=== PATIENT | female | born 1965 ===

== ENCOUNTER 2018-04-10 07:17 | Observation (INO) | payer MEDICAID, OTHER ==
[2018-04-10 07:18] VITALS: BMI 21.9
[2018-04-10] MEDS ORDERED: Albuterol-Ipratrop 3 mg / 0.5 (3 ml) UD IH STA ×3 (08:06→08:43)
--- NOTE | 2018-04-10 08:26 | ED PDOC ---
Arrival/HPI - General Historian: Patient - History of Present Illness Narrative History of Present Illness (Text): 04/10/18 08:26 Patient is a 52-year-old F with PMH of Heroin Abuse, COPD, and Asthma who presents with chest pain x2 days. Patient localizes the chest pain to her st ernum, and describes the pain as sharp, constant, and non-radiating. Patient quantifies the pain as 10/10 at its worst. Patient associates the pain with diaphoresis, productive cough with white sputum, and shortness of breath. Patient otherwise denies numbness/tingling in her upper and/or lower extremities, weakness, fatigue, fever, chills, blurred vision, diarrhea, nausea, and/or vomiting. Of note, Patient was recently seen at [facility], was discharged this Sunday, where she says she was diagnosed with bronchitis, and was prescribed oral prednisone. Patient says she started her Prednisone today and took 20mg PO. Time/Duration: < week Symptom Onset: Sudden Symptom Course: Unchanged Quality: Stabbing Severity Level: 10 Activities at Onset: Rest <Alize Law - Last Filed: 04/10/18 09:39> <Richardson Galvan - Last Filed: 04/10/18 10:27> - General Time Seen by Provider: 04/10/18 07:25 Past Medical History - Provider Review Nursing Documentation Reviewed: Yes - Infectious Disease Hx of Infectious Diseases: None - Cardiac Hx Hypertension: No - Pulmonary Hx Asthma: Yes Hx Bronchitis: Yes Hx Chronic Obstructive Pulmonary Disease (COPD): Yes Hx Pneumonia: Yes - Neurological Hx Seizures: No - HEENT Hx HEENT Disorder: No - Renal Hx Renal Disorder: Yes Hx Kidney Stones: Yes (RIGHT) - Endocrine/Metabolic Hx Endocrine Disorders: No - Hematological/Oncological Hx Blood Disorders: No - Integumentary Hx Dermatological Disorder: No - Musculoskeletal/Rheumatological Hx Musculoskeletal Disorders: Yes - Gastrointestinal Hx Gastritis: (Patient denies gatritis) - Genitourinary/Gynecological Hx Sexually Transmitted Diseases: No - Psychiatric Hx Anxiety: Yes Hx Depression: Yes Hx Substance Use: Yes - Surgical History Other/Comment: Hx Kidney stone removal lithotripsy - Anesthesia Hx Anesthesia: Yes Hx Anesthesia Reactions: No Hx Malignant Hyperthermia: No - Suicidal Assessment Feels Threatened In Home Enviroment: No <Alize Law - Last Filed: 04/10/18 09:39> Family/Social History - Physician Review Nursing Documentation Reviewed: Yes Family/Social History: Unknown Family HX Smoking Status: Heavy Smoker > 10 Cigarettes Daily Hx Alcohol Use: No Hx Substance Use: Yes Substance used: HEROIN <Alize Law - Last Filed: 04/10/18 09:39> Allergies/Home Meds <Alize Law - Last Filed: 04/10/18 09:39> <Richardson Galvan - Last Filed: 04/10/18 10:27> Allergies/Adverse Reactions: Allergies No Known Allergies Allergy (Verified 04/09/18 10:13) Review of Systems - Review of Systems Constitutional: absent: Fatigue Eyes: absent: Vision Changes, Eye Pain ENT: Normal Respiratory: SOB, Cough, Sputum (white) Cardiovascular: Chest Pain. absent: Palpitations, Edema, Calf Pain, Syncope Gastrointestinal: Normal Genitourinary Female: Normal Musculoskeletal: Normal Skin: Normal Neurological: Normal Endocrine: Normal Hemo/Lymphatic: Normal Psychiatric: Normal <Alize Law - Last Filed: 04/10/18 09:39> Physical Exam Vital Signs Temp Pulse Resp BP Pulse Ox 04/10/18 07:18 98.4 F 94 H 22 141/92 H 93 L Temperature: Afebrile Blood Pressure: Normal Pulse: Regular Respiratory Rate: Normal Appearance: Positive for: Non-Toxic, Uncomfortable Pain Distress: Moderate Mental Status: Positive for: Alert and Oriented X 3 - Systems Exam Head: Present: Atraumatic, Normocephalic Pupils: Present: PERRL Extroacular Muscles: Present: EOMI Conjunctiva: Present: Normal Ears: Present: Normal Mouth: Present: Moist Mucous Membranes Neck: Present: Normal Range of Motion. No: Bruit Respiratory/Chest: Present: Wheezes, Tender to Palpation (chest). No: Clear to Auscultation, Accessory Muscle Use, Decreased Breath Sounds Cardiovascular: Present: Regular Rate and Rhythm, Normal S1, S2. No: Murmurs Abdomen: Present: Normal Bowel Sounds. No: Tenderness, Distention, Peritoneal Signs Upper Extremity: Present: Normal Inspection. No: Cyanosis Lower Extremity: Present: Normal Inspection. No: Edema Neurological: Present: GCS=15, CN II-XII Intact, Speech Normal Skin: Present: Warm, Dry, Normal Color. No: Rashes <Alize Law - Last Filed: 04/10/18 09:39> Vital Signs Temp Pulse Resp BP Pulse Ox 04/10/18 10:08 98.6 F 22 138/85 92 L 04/10/18 07:18 98.4 F 94 H 22 141/92 H 93 L <Lj Galvanjoann Hurst - Last Filed: 04/10/18 10:27> Medical Decision Making ED Course and Treatment: 04/10/18 08:34 IMPRESSION Patient is a 52-year-old F with PMH of Heroin Abuse, COPD, and Asthma who presents with chest pain x2 days. ASSESSMENT Asthma exacerbation Bronchitis PLAN Imaging / Labs: - EKG: NSR, read by me - CBC - CMP - CXR - Troponin x1 Medications Administered - Solumedrol 125mg IVP - Duonebs x3 - Toradol 30 IVP 04/10/18 08:38 04/10/18 09:40 Patient is s/p duonebs x3 and continues to have wheezing and feel some discomfort in her chest. Patient admitted under the hospitalist team. - RAD Interpretation Radiology Orders: 04/10/18 08:13 CHEST PORTABLE [RAD] Stat - Medication Orders Current Medication Orders: Discontinued Medications Albuterol/Ipratropium (Duoneb 3 Mg/0.5 Mg (3 Ml) Ud) 3 ml IH STAT STA Stop: 04/10/18 08:07 Albuterol/Ipratropium (Duoneb 3 Mg/0.5 Mg (3 Ml) Ud) 3 ml IH STAT STA Stop: 04/10/18 08:16 Ketorolac Tromethamine (Toradol) 30 mg IVP STAT STA Stop: 04/10/18 08:07 Methylprednisolone (Solu-Medrol) 125 mg IVP STAT STA Stop: 04/10/18 08:07 <Alize Law - Last Filed: 04/10/18 09:39> ED Course and Treatment: 04/10/18 9:40 Patient is a 52 yo female with chest pain x shortness of breathe similar to her asthma. Lungs: wheezing, restractions, + rhonchi b/l Chest Wall: Tenderness to mid chest wall Impression is Asthma Exacerbation, Costrocondritis After several treatments in the ED patient improved but still having symptoms. She is still wheezing. Case was discussed with Dr. Guerra who admits for Dr. Pablo Alan. - Lab Interpretations Lab Results: pCO2 45 mm/Hg (35-45) 04/10/18 09:43 pO2 58.0 mm/Hg (80-100) L 04/10/18 09:43 HCO3 31.3 mmol/L (21-28) H 04/10/18 09:43 ABG pH 7.45 (7.35-7.45) 04/10/18 09:43 ABG Total CO2 32.7 mmol.L (22-28) H 04/10/18 09:43 ABG O2 Saturation 95.6 % (95-98) 04/10/18 09:43 ABG O2 Content 14.1 ML/dl (15-23) L 04/10/18 09:43 ABG Base Excess 6.5 mmol/L (-2.0-3.0) H 04/10/18 09:43 ABG Hemoglobin 11.0 g/dL (11.7-17.4) L 04/10/18 09:43 ABG Carboxyhemoglobin 4.2 % (0.5-1.5) H 04/10/18 09:43 POC ABG HHb (Measured) 4.2 % (0-5) 04/10/18 09:43 ABG Methemoglobin 0.8 % (0.0-3.0) 04/10/18 09:43 ABG O2 Capacity 14.7 mL/dl (16-24) L 04/10/18 09:43 Hgb O2 Saturation 90.8 % (95.0-98.0) L 04/10/18 09:43 FiO2 21.0 % 04/10/18 09:43 Troponin I < 0.01 ng/mL 04/10/18 08:30 Total Bilirubin 0.2 mg/dL (0.2-1.3) 04/10/18 08:30 AST 32 U/L (14-36) 04/10/18 08:30 ALT 42 U/L (7-56) 04/10/18 08:30 Alkaline Phosphatase 76 U/L (38-126) 04/10/18 08:30 Total Protein 6.2 g/dL (5.8-8.3) 04/10/18 08:30 Albumin 3.7 g/dL (3.0-4.8) 04/10/18 08:30 Globulin 2.6 gm/dL 04/10/18 08:30 Albumin/Globulin Ratio 1.4 (1.1-1.8) 04/10/18 08:30 - RAD Interpretation Radiology Orders: 04/10/18 08:13 CHEST PORTABLE [RAD] Stat - Medication Orders Current Medication Orders: Discontinued Medications Albuterol/Ipratropium (Duoneb 3 Mg/0.5 Mg (3 Ml) Ud) 3 ml IH STAT STA Stop: 04/10/18 08:07 Last Admin: 04/10/18 08:08 Dose: 3 ml Albuterol/Ipratropium (Duoneb 3 Mg/0.5 Mg (3 Ml) Ud) 3 ml IH STAT STA Stop: 04/10/18 08:16 Last Admin: 04/10/18 09:36 Dose: 3 ml Albuterol/Ipratropium (Duoneb 3 Mg/0.5 Mg (3 Ml) Ud) 3 ml IH STAT STA Stop: 04/10/18 08:44 Last Admin: 04/10/18 08:45 Dose: 3 ml Ketorolac Tromethamine (Toradol) 30 mg IVP STAT STA Stop: 04/10/18 08:07 Last Admin: 04/10/18 09:10 Dose: 30 mg MAR Pain Assessment Document 04/10/18 09:10 SRE (Rec: 04/10/18 09:37 [id number] Pain Reassessment Is this a pain reassessment? Yes Sleep Is patient sleeping during reassessment? No Presence of Pain Presence of Pain Yes Location Pain Location Body Site Generalized Description Description Intermittent IVP Administration Document 04/10/18 09:10 SRE (Rec: 04/10/18 09:37 [facility]RE [id number]) Charges for Administration # of IVP Administrations 1 Methylprednisolone (Solu-Medrol) 125 mg IVP STAT STA Stop: 04/10/18 08:07 Last Admin: 04/10/18 08:10 Dose: 125 mg IVP Administration Document 04/10/18 08:10 SRE (Rec: 04/10/18 09:36 [id number] Charges for Administration # of IVP Administrations 1 <Richardson Galvan - Last Filed: 04/10/18 10:27> Disposition/Present on Arrival - Present on Arrival Any Indicators Present on Arrival: No History of DVT/PE: No History of Uncontrolled Diabetes: No Urinary Catheter: No History Surgical Site Infection Following: None - Disposition Have Diagnosis and Disposition been Completed?: Yes Disposition Time: 09:39 Patient Plan: Admission <Alize Law - Last Filed: 04/10/18 09:39> - Disposition Have Diagnosis and Disposition been Completed?: Yes <Richardson Galvan - Last Filed: 04/10/18 10:27> - Disposition Diagnosis: Exacerbation of asthma Disposition: HOSPITALIZED Condition: GUARDED
[2018-04-10 08:49] LABS: BASO # 0.01 K/mm3 (0.0-2.0); BASO % 0.1 % (0.0-3.0); EOS # 0.1 (0.0-0.7); EOS % 0.3 % (1.5-5.0); GRAN # 13.42 (1.4-6.5); GRAN % 88.2 % (50.0-68.0); HEMOGLOBIN 10.7 g/dL (12.0-16.0); LYMPH # 0.9 (1.2-3.4); MEAN CELL VOLUME 90.1 fl (80.0-105.0); MEAN CORPUSCULAR HEMOGLOBIN 27.8 pg (25.0-35.0); MEAN CORPUSCULAR HGB CONC 30.8 g/dl (31.0-37.0); MEAN PLATELET VOLUME 9.4 fl (7.0-11.0); MONO # 0.8 (0.1-0.6); MONO % 5.4 % (1.0-6.0); RBC 3.85 10^6/uL (3.5-6.1); RED CELL DISTRIBUTION WIDTH 15.7 % (11.5-14.5); WHITE BLOOD COUNT 15.2 10^3/uL (4.5-11.0)
[2018-04-10 09:08] LABS: TROPONIN I < 0.01 ng/mL
[2018-04-10 09:26] LABS: ALB/GLOB RATIO 1.4 (1.1-1.8); ALBUMIN 3.7 g/dL (3.0-4.8); ALT/SGPT 42 U/L (7-56); AST/SGOT 32 U/L (14-36); BLOOD UREA NITROGEN 22 mg/dL (7-21); CALCIUM 8.3 mg/dL (8.4-10.5); GFR NON-AFRICAN AMERICAN > 60
--- NOTE | 2018-04-10 09:48 | RAD ---
Date of service: 04/10/2018 HISTORY: chest pain COMPARISON: 03/29/2018 FINDINGS: LUNGS: The prior right basal equivocal infiltrate is less conspicuous on this exam. The right infrahilar bronchovascular markings do appear more prominent than typically seen. Some minimal prior and/or clearing right infrahilar peribronchial ir inflammatory changes including a patchy infiltrate here is still a consideration based on the even earlier appearance of a 10/09/2015 study. Additional underlying pathology here not excluded. In the mid right lung zone an interval vague low-density nodular opacity is perceived not apparent on prior studies. An equivocal less pronounced opacity in left mid lung zone (versus summation of bronchovascular markings in the posterior left rib) also a consideration. There are some coalescent the cystic changes in the left perihilar region. PLEURA: No significant pleural effusion identified, no pneumothorax apparent. CARDIOVASCULAR: There is presence of aortic atherosclerotic calcification on x-ray. Probable minimal left ventricular enlargement. Top-normal bronchovascular markings. OSSEOUS STRUCTURES: Dextroscoliosis, VISUALIZED UPPER ABDOMEN: Normal. OTHER FINDINGS: None. IMPRESSION: Possible low-density nodular opacities present right mid lung zone most conspicuous. Confluency its of right infrahilar bronchovascular markings with some vague nodular component questioned-slightly less conspicuous with the most recent study but not appreciated on the 2016 study. Indeterminate findings in the left mid lung zone possibly merely summation of soft tissues. Consider CT chest imaging for further evaluation. Comments: Study marked for PA review .
[2018-04-10 09:49] LABS: ARTERIAL BLOOD GAS HCO3 31.3 mmol/L (21-28); ARTERIAL BLOOD GAS O2 CAPACITY 14.7 mL/dl (16-24); ARTERIAL BLOOD GAS O2 CONTENT 14.1 ML/dl (15-23); ARTERIAL BLOOD GAS O2 SAT 95.6 % (95-98); ARTERIAL BLOOD GAS PCO2 45 mm/Hg (35-45); ARTERIAL BLOOD GAS PH 7.45 (7.35-7.45); ARTERIAL BLOOD GAS TCO2 32.7 mmol.L (22-28)
[2018-04-10 10:49] LABS: PHENCYCLIDINE, UR NEGATIVE (NEGATIVE)
[2018-04-10 10:51] LABS: BARBITURATES, UR NEGATIVE (NEGATIVE); BENZODIAZEPINES, UR NEGATIVE (NEGATIVE); OPIATES, UR POSITIVE (NEGATIVE)
[2018-04-10] MEDS ORDERED: Azithromycin 250 MG in Sodium Chloride 0.9% 250 ML IVPB STA (10:56)
[2018-04-10] MEDS ORDERED: Barium Sulfate Susp 2.1% w/v, 2.0% w/w 450 mL Bottle PO ONE (11:09)
[2018-04-10] MEDS ORDERED: Albuterol-Ipratrop 3 mg / 0.5 (3 ml) UD IH PRN (11:09)
[2018-04-10] MEDS: Albuterol-Ipratrop 3 mg / 0.5 (3 ml) UD IH SCH ×4 (11:41→23:16)
[2018-04-10] MEDS ORDERED: Iohexol 350 MG/100 ML VIAL ONE (11:42)
--- NOTE | 2018-04-10 11:49 | CP.PCM.HP ---
<Fouzia Alexandra - Last Filed: 04/10/18 12:38> History of Present Illness - History of Present Illness History of Present Illness: HISTORY & PHYSICAL NOTE FOR HOSPITALIST TEAM Fouzia Alexandra PGY1 52 y/o F with PMHx of asthma w/ multiple hospital admissions, heroin abuse, anxiety presents to ED with complaints of shortness of breath and wheezing thats been ongoing for the past 2 days with associated dry cough, fevers, chills and chest tightness due to cough. SOB is alleviated with ventolin inhaler that she's been using three times/day, aggravated with smoking. Pt was recently discharged from [facility] for SOB and PNA, and also signed out AMA from [facility]. She reports smoking pack/day 6/yrs. She reports she is a heavy heroin use and snorted 10 bags today, and has been using 10-15 bags regularly. She reports she has been having night sweats and unintentionally lost 50-60 pounds over the past 3-4 months. She denies chest pain, palpitations, nausea, vomiting, constipation, diarrhea, dysuria. PMH: Asthma, anxiety All: NKDA PSH: lithotripsy SH: snorts heroin-10 bags/day, cigarettes pack/day x 6 yrs, homeless, former history of cocaine use. FH: M: "stomach cancer"- in 80s. F: stomach ca. Brother: Colon cancer(40s). Sister: Colon cancer (50s) Meds: Ventolin ih prn PMD: Dr. Avila Adams Present on Admission - Present on Admission Any Indicators Present on Admission: No Review of Systems - Review of Systems Review of Systems: as per HPI Past Patient History - Infectious Disease Hx of Infectious Diseases: None - Past Medical History & Family History Past Medical History?: Yes - Past Social History Smoking Status: Heavy Smoker > 10 Cigarettes Daily - CARDIAC Hx Hypertension: No - PULMONARY Hx Asthma: Yes Hx Bronchitis: Yes Hx Chronic Obstructive Pulmonary Disease (COPD): Yes Hx Pneumonia: Yes - NEUROLOGICAL Hx Seizures: No - HEENT Hx HEENT Problems: No - RENAL Hx Chronic Kidney Disease: Yes Hx Kidney Stones: Yes (RIGHT) - ENDOCRINE/METABOLIC Hx Endocrine Disorders: No - HEMATOLOGICAL/ONCOLOGICAL Hx Blood Disorders: No - INTEGUMENTARY Hx Dermatological Problems: No - MUSCULOSKELETAL/RHEUMATOLOGICAL Hx Musculoskeletal Disorders: Yes - GASTROINTESTINAL Hx Gastritis: (Patient denies gatritis) - GENITOURINARY/GYNECOLOGICAL Hx Sexually Transmitted Disorders: No - PSYCHIATRIC Hx Anxiety: Yes Hx Depression: Yes Hx Substance Use: Yes - SURGICAL HISTORY Other/Comment: Hx Kidney stone removal lithotripsy - ANESTHESIA Hx Anesthesia: Yes Hx Anesthesia Reactions: No Hx Malignant Hyperthermia: No Meds Allergies/Adverse Reactions: Allergies Allergy/AdvReac Type Severity Reaction Status Date / Time No Known Allergies Allergy Verified 04/10/18 13:52 Physical Exam - Constitutional Appears: Well, Non-toxic, No Acute Distress - Head Exam Head Exam: NORMAL INSPECTION, NORMOCEPHALIC - Eye Exam Eye Exam: EOMI, Normal appearance - ENT Exam ENT Exam: Mucous Membranes Moist, Normal Exam - Neck Exam Neck exam: Positive for: Normal Inspection - Respiratory Exam Respiratory Exam: Rhonchi (b/l), Wheezes - Cardiovascular Exam Cardiovascular Exam: REGULAR RHYTHM, +S1, +S2 - GI/Abdominal Exam GI & Abdominal Exam: Soft. absent: Tenderness - Extremities Exam Extremities exam: Positive for: normal inspection. Negative for: calf tenderness - Back Exam Back exam: NORMAL INSPECTION - Neurological Exam Neurological exam: Alert, Oriented x3 - Psychiatric Exam Psychiatric exam: Normal Affect, Normal Mood - Skin Skin Exam: Dry, Intact, Warm Results - Vital Signs Recent Vital Signs: Last Vital Signs Temp 98.6 F 04/10/18 10:08 Pulse 96 H 04/10/18 11:45 Resp 22 04/10/18 10:08 BP 138/85 04/10/18 10:08 Pulse Ox 92 L 04/10/18 10:08 - Labs Result Diagrams: 04/10/18 08:30 04/10/18 08:30 Labs: Laboratory Results - last 24 hr 04/10/18 04/10/18 04/10/18 08:30 08:30 09:43 WBC 15.2 H RBC 3.85 Hgb 10.7 L Hct 34.7 L MCV 90.1 MCH 27.8 MCHC 30.8 L RDW 15.7 H Plt Count 371 MPV 9.4 Gran % 88.2 H Lymph % (Auto) 6.0 L Greene % (Auto) 5.4 Eos % (Auto) 0.3 L Baso % (Auto) 0.1 Gran # 13.42 H Lymph # (Auto) 0.9 L Greene # (Auto) 0.8 H Eos # (Auto) 0.1 Baso # (Auto) 0.01 pCO2 45 pO2 58.0 L HCO3 31.3 H ABG pH 7.45 ABG Total CO2 32.7 H ABG O2 Saturation 95.6 ABG O2 Content 14.1 L ABG Base Excess 6.5 H ABG Hemoglobin 11.0 L ABG Carboxyhemoglobin 4.2 H POC ABG HHb (Measured) 4.2 ABG Methemoglobin 0.8 ABG O2 Capacity 14.7 L Hgb O2 Saturation 90.8 L FiO2 21.0 Sodium 134 Potassium 4.2 Chloride 96 L Carbon Dioxide 35 H Anion Gap 8 L BUN 22 H Creatinine 0.5 L Est GFR ( Amer) > 60 Est GFR (Non-Af Amer) > 60 Random Glucose 135 H Calcium 8.3 L Total Bilirubin 0.2 AST 32 ALT 42 Alkaline Phosphatase 76 Troponin I < 0.01 Total Protein 6.2 Albumin 3.7 Globulin 2.6 Albumin/Globulin Ratio 1.4 Urine Opiates Screen Urine Methadone Screen Ur Barbiturates Screen Ur Phencyclidine Scrn Ur Amphetamines Screen U Benzodiazepines Scrn U Oth Cocaine Metabols U Cannabinoids Screen 04/10/18 10:00 WBC RBC Hgb Hct MCV MCH MCHC RDW Plt Count MPV Gran % Lymph % (Auto) Greene % (Auto) Eos % (Auto) Baso % (Auto) Gran # Lymph # (Auto) Greene # (Auto) Eos # (Auto) Baso # (Auto) pCO2 pO2 HCO3 ABG pH ABG Total CO2 ABG O2 Saturation ABG O2 Content ABG Base Excess ABG Hemoglobin ABG Carboxyhemoglobin POC ABG HHb (Measured) ABG Methemoglobin ABG O2 Capacity Hgb O2 Saturation FiO2 Sodium Potassium Chloride Carbon Dioxide Anion Gap BUN Creatinine Est GFR ( Amer) Est GFR (Non-Af Amer) Random Glucose Calcium Total Bilirubin AST ALT Alkaline Phosphatase Troponin I Total Protein Albumin Globulin Albumin/Globulin Ratio Urine Opiates Screen Positive H Urine Methadone Screen Negative Ur Barbiturates Screen Negative Ur Phencyclidine Scrn Negative Ur Amphetamines Screen Negative U Benzodiazepines Scrn Negative U Oth Cocaine Metabols Negative U Cannabinoids Screen Negative Assessment & Plan - Assessment and Plan (Free Text) Assessment: 52 y/o F with PMHx of asthma w/ multiple hospital admissions, heroin abuse, anxiety presents to ED with complaints of shortness of breath and wheezing Plan: Asthma exacerbation Duoneb aniket and prn Azithromycin/rocephin IVPB Solumedrol 40Q12 Chest xray shows nodular changes suspicious for post obstructive pneumonia vs cancer. Pulmonology consult Check rapid flu Anxiety start alprazolam Heroin abuse start clonidine 0.1mg tid Tobacco abuse start nicotine patch Case seen, examined and discussed with attending physician, Dr. Charlie Alexandra PGY1 <Mekhi Guerra - Last Filed: 04/10/18 17:27> Results - Vital Signs Recent Vital Signs: Last Vital Signs Temp 98.1 F 04/10/18 14:00 Pulse 86 04/10/18 14:00 Resp 20 04/10/18 14:00 BP 123/73 04/10/18 14:00 Pulse Ox 98 04/10/18 14:00 - Labs Result Diagrams: 04/10/18 08:30 04/10/18 08:30 Labs: Laboratory Results - last 24 hr 04/10/18 04/10/18 04/10/18 08:30 08:30 09:43 WBC 15.2 H RBC 3.85 Hgb 10.7 L Hct 34.7 L MCV 90.1 MCH 27.8 MCHC 30.8 L RDW 15.7 H Plt Count 371 MPV 9.4 Gran % 88.2 H Lymph % (Auto) 6.0 L Greene % (Auto) 5.4 Eos % (Auto) 0.3 L Baso % (Auto) 0.1 Gran # 13.42 H Lymph # (Auto) 0.9 L Greene # (Auto) 0.8 H Eos # (Auto) 0.1 Baso # (Auto) 0.01 pCO2 45 pO2 58.0 L HCO3 31.3 H ABG pH 7.45 ABG Total CO2 32.7 H ABG O2 Saturation 95.6 ABG O2 Content 14.1 L ABG Base Excess 6.5 H ABG Hemoglobin 11.0 L ABG Carboxyhemoglobin 4.2 H POC ABG HHb (Measured) 4.2 ABG Methemoglobin 0.8 ABG O2 Capacity 14.7 L Hgb O2 Saturation 90.8 L FiO2 21.0 Sodium 134 Potassium 4.2 Chloride 96 L Carbon Dioxide 35 H Anion Gap 8 L BUN 22 H Creatinine 0.5 L Est GFR ( Amer) > 60 Est GFR (Non-Af Amer) > 60 Random Glucose 135 H Calcium 8.3 L Total Bilirubin 0.2 AST 32 ALT 42 Alkaline Phosphatase 76 Troponin I < 0.01 Total Protein 6.2 Albumin 3.7 Globulin 2.6 Albumin/Globulin Ratio 1.4 Urine Opiates Screen Urine Methadone Screen Ur Barbiturates Screen Ur Phencyclidine Scrn Ur Amphetamines Screen U Benzodiazepines Scrn U Oth Cocaine Metabols U Cannabinoids Screen 04/10/18 10:00 WBC RBC Hgb Hct MCV MCH MCHC RDW Plt Count MPV Gran % Lymph % (Auto) Greene % (Auto) Eos % (Auto) Baso % (Auto) Gran # Lymph # (Auto) Greene # (Auto) Eos # (Auto) Baso # (Auto) pCO2 pO2 HCO3 ABG pH ABG Total CO2 ABG O2 Saturation ABG O2 Content ABG Base Excess ABG Hemoglobin ABG Carboxyhemoglobin POC ABG HHb (Measured) ABG Methemoglobin ABG O2 Capacity Hgb O2 Saturation FiO2 Sodium Potassium Chloride Carbon Dioxide Anion Gap BUN Creatinine Est GFR ( Amer) Est GFR (Non-Af Amer) Random Glucose Calcium Total Bilirubin AST ALT Alkaline Phosphatase Troponin I Total Protein Albumin Globulin Albumin/Globulin Ratio Urine Opiates Screen Positive H Urine Methadone Screen Negative Ur Barbiturates Screen Negative Ur Phencyclidine Scrn Negative Ur Amphetamines Screen Negative U Benzodiazepines Scrn Negative U Oth Cocaine Metabols Negative U Cannabinoids Screen Negative Attending/Attestation - Attestation I have personally seen and examined this patient.: Yes I have fully participated in the care of the patient.: Yes I have reviewed all pertinent clinical information: Yes Notes (Text): 04/10/18 17:17 Attending note; Patient seen and examined with resident. Patient is alert and awake. Complaining of significant cough and shortness of breath. Denies any fevers, chills. Complaining of minimum sputum production. Patient is a 52-year-old female with PMHx of asthma/copd, active smoking , heroin abuse, anxiety and homelessness is admitted for acute COPD exacerbation. 1. Acute COPD exacerbation. Patient had significant tachycardia and hypoxia in the ER. ABG showed PO2 of 58. Started on oxygen nasal cannula, Pulmicort, IV Solu-Medrol and DuoNeb treatment. 2. Active smoking; smoking cessation is strongly advised. Started on NicoDerm patch. 3. Active heroin abuse; patient snorts heroin. Complete drug abuse cessation is strongly advised. 4. Chest x-ray showed multiple opacities. Chest abdomen and pelvis CT ordered. pulmonary evaluation requested. 5. Anemia; no active bleeding noted. Workup ordered. 6. Anxiety depression; IV Ativan when necessary. 5. Homelessness; social sciences instructor evaluation requested. Upon discharge the patient will be [facility] [place] [facility] [place]
[2018-04-10] MEDS: cefTRIAXone 1 gm 1 GM/100 ML BAG IVPB SCH (13:31)
[2018-04-10] MEDS: MethylPREDNISolone 40 mg Vial IVP SCH ×2 (13:31→21:14)
[2018-04-10] MEDS ORDERED: Influenza Vaccine 60 mcg/0.5 mL SYR (4YR UP) IM ONE (14:22)
[2018-04-10] MEDS ORDERED: Pneumococcal 23-Valent Vaccine IM ONE (14:22)
--- NOTE | 2018-04-10 16:44 | CT ---
Date of service: 04/10/2018 PROCEDURE: CT Chest, Abdomen and Pelvis with intravenous contrast HISTORY: Asthma, CXR changes COMPARISON: No prior similar study available for comparison TECHNIQUE: IV dose administered: 95 cc of Omnipaque 350 intravenously. Axial and reformatted coronal and sagittal CT images of the chest abdomen and pelvis were obtained after IV contrast administration. Radiation dose: Total exam DLP = 256.79 mGy-cm. This CT exam was performed using one or more of the following dose reduction techniques: Automated exposure control, adjustment of the mA and/or kV according to patient size, and/or use of iterative reconstruction technique. FINDINGS: CT CHEST WITH CONTRAST: LUNGS: There is pleural base low-density nodule noted at the anterior aspect of the left lung upper lobe measures 14.8 millimeter in the transverse diameter. Adjacent smaller nodules and hazy opacities are also noted. There is also pleural base nodule at the anterior aspect of the left lung upper lobe measures 6.3 millimeter. Ground-glass opacities noted in lungs more prominent in the upper lobes. MEDIASTINUM: Unremarkable. Normal caliber aorta and pulmonary arterial trunk. No aortic dissection. The heart is mildly enlarged. LYMPH NODES: Unremarkable. PLEURA: Unremarkable. No pneumothorax. No pleural fluid. BONES: There are subacute or chronic fracture involving the anterior aspect of right 3rd 4th 5th 6th ribs. OTHER FINDINGS: None. CT ABDOMEN AND PELVIS: LIVER: The liver is mildly enlarged. No evidence of mass lesion or acute pathology in the liver. GALLBLADDER AND BILE DUCTS: The gallbladder is contracted. PANCREAS: Unremarkable. No gross lesion or ductal dilatation. SPLEEN: Unremarkable. ADRENALS: Unremarkable. No mass. KIDNEYS AND URETERS: Unremarkable. No hydronephrosis. No solid mass. VASCULATURE: No aortic atherosclerotic calcification or mural plaque present. Unremarkable. No aortic aneurysm. BOWEL: Unremarkable. No obstruction. No gross mural thickening. Mild constipation is noted. APPENDIX: No evidence of appendicitis. PERITONEUM: Unremarkable. No free fluid. No free air. There is focal density seen in the right mid abdomen adjacent to the ascending colon of uncertain etiology LYMPH NODES: . BLADDER: Unremarkable. REPRODUCTIVE: Unremarkable. BONES: No acute fracture. OTHER FINDINGS: None. IMPRESSION: Pleural base opacity at the anterior aspect of the right lung upper lobe which adjacent hazy opacities and linear opacities. Findings may represent scar tissue and focal pleural thickening secondary to prior trauma. Three months follow-up reassessment is suggested to document stability. Nonspecific patchy ground-glass opacities in the lungs noted more prominent in the upper lobe. Mild cardiomegaly. No evidence of acute pathology in the abdomen and pelvis. No evidence of mass lesion in the adrenal glands or in the liver. Focal soft tissue density noted at the right mid abdomen adjacent and lateral to the ascending colon of uncertain etiology may represent focal thickening in the right lateral abdominal wall muscle.
[2018-04-10] MEDS: Enoxaparin 40 mg Syringe SC SCH (18:55)
[2018-04-10] MEDS: Budesonide 0.25 mg/2 ml Inhal Susp UD IH SCH (19:24)
[2018-04-10] MEDS: Arformoterol 15 mcg/2 ml Inh Sol IH SCH (19:24)
[2018-04-10] MEDS: Morphine 2 mg/ml ISec IVP PRN (21:09)
[2018-04-10] MEDS ORDERED: MethylPREDNISolone 40 mg Vial IVP SCH (22:00)
--- NOTE | 2018-04-11 00:19 | CARD ---
APPROVED REPORT Date of service: 04/10/2018 EKG Measurement Heart [id number] <Conclusion> Normal sinus rhythm Normal ECG
[2018-04-11] MEDS: Morphine 2 mg/ml ISec IVP PRN (02:41)
[2018-04-11] MEDS: MethylPREDNISolone 40 mg Vial IVP SCH (03:56)
[2018-04-11] MEDS: Albuterol-Ipratrop 3 mg / 0.5 (3 ml) UD IH SCH ×3 (04:46→10:59)
[2018-04-11] MEDS ORDERED: Pantoprazole 40 mg EC Tab PO SCH (06:00)
[2018-04-11 06:48] LABS: GRAN # 13.97 (1.4-6.5); GRAN % 93.1 % (50.0-68.0); HEMOGLOBIN 9.9 g/dL (12.0-16.0); LYMPH # 0.5 (1.2-3.4); LYMPH % 3.6 % (22.0-35.0); MEAN CELL VOLUME 89.4 fl (80.0-105.0); MEAN CORPUSCULAR HEMOGLOBIN 27.5 pg (25.0-35.0); MEAN CORPUSCULAR HGB CONC 30.7 g/dl (31.0-37.0); MEAN PLATELET VOLUME 9.3 fl (7.0-11.0); MONO # 0.5 (0.1-0.6); MONO % 3.3 % (1.0-6.0); PLATELET COUNT 388 10^3/uL (120.0-450.0); RED CELL DISTRIBUTION WIDTH 15.3 % (11.5-14.5)
[2018-04-11 06:57] LABS: IRON 64 ug/dL (45-180)
[2018-04-11 07:07] LABS: % IRON SATURATION 22 % (20-55); TOTAL IRON BINDING CAPACITY 284 ug/dL (265-497)
[2018-04-11 07:10] LABS: ALB/GLOB RATIO 1.4 (1.1-1.8); ALBUMIN 3.6 g/dL (3.0-4.8); ALT/SGPT 34 U/L (7-56); AST/SGOT 25 U/L (14-36); BLOOD UREA NITROGEN 21 mg/dL (7-21); CALCIUM 8.9 mg/dL (8.4-10.5); GFR NON-AFRICAN AMERICAN > 60
[2018-04-11] MEDS ORDERED: Sodium Chloride 0.9% 1,000 ML IV SCH (07:30)
[2018-04-11] MEDS: Budesonide 0.25 mg/2 ml Inhal Susp UD IH SCH (07:37)
[2018-04-11] MEDS: Arformoterol 15 mcg/2 ml Inh Sol IH SCH (07:37)
--- NOTE | 2018-04-11 08:05 | CON ---
DATE: 04/10/2018 HISTORY OF PRESENT ILLNESS: This is a 52-year-old gentle lady with history of heroin abuse (she has been treated in rehab facility, however, relapsed recently and her last heroin snorting was today morning), asthma, anxiety, who presented to emergency room with complaints of 3-day history of shortness of breath, wheezing and chest pain on deep inspiration and associated with coughing. Those complaints were associated with cough with whitish sputum production. The symptoms started to bother her about 3 days ago without any alleviating or aggravating factors. It appears that they became really intolerable starting today after she snorted heroin. The patient denies fever, chills, sweats, nausea, vomiting, diarrhea or constipation. The patient never had similar symptoms in the past. PAST MEDICAL HISTORY: Asthma, anxiety. ALLERGIES: NKDA. PAST SURGICAL HISTORY: Lithotripsy. SOCIAL HISTORY: The patient is an active smoker. She smokes about a pack a day for 6 years. She is homeless. She has a former history of cocaine abuse. She snorts heroin about 10 bags a day. FAMILY HISTORY: Noncontributory. REVIEW OF SYSTEMS: Review of 12-organ system other than mentioned in history of present illness is negative. PHYSICAL EXAMINATION: VITAL SIGNS: Temperature 98.6, blood pressure 138/85, respiratory rate 22, oxygen saturation 92-93% on 2 liters nasal cannula. ENT: Head and neck atraumatic. LUNGS: Coarse rhonchi bilaterally. HEART: Regular rate and rhythm. S1, S2 normal. ABDOMEN: Soft, nontender, nondistended. MUSCULOSKELETAL: No C/C/E. NEUROLOGIC: The patient moves all extremities spontaneously. SKIN: Moist. PSYCHIATRIC: The patient is alert, awake and oriented x3. LABORATORY DATA: WBC 15.2, hemoglobin 10.7, platelet count 371. Sodium 134, potassium 4.2, chloride 96, carbon dioxide 35, BUN 22, creatinine 0.5, glucose 135. Troponin x2 negative. AST 32, ALT 42, total bilirubin 0.2. INR 1. Blood gas: 7.45/45/68 on room air. U-tox positive for opiates. Chest x-ray showed possible low density nodular opacities in the right midlung zone most conspicuous. Confluency of right intrahilar bronchovascular markings with some vague nodular component, questionably slightly less conspicuous with the most recent study but not appreciated on the 2016 study. Indeterminate findings in the left midlung zone, possibly merely summation of soft tissues, consider CT chest imaging for further evaluation. CT chest, abdomen and pelvis is pending and was ordered by primary team. Meds: reviewed ASSESSMENT AND PLAN: This is a 52-year-old lady who presented to [facility] with what appears to be community-acquired pneumonia with increased shortness of breath, cough and wheezing; however, possibility of acute pneumonitis caused by heroin snorting cannot be ruled out. At present time, I will proceed with antibiotics, septic workup including blood, urine, sputum culture, urine for legionella and strep ag, procalcitonin, steroids taper and nebs. I agree with CT chest to elaborate on reticulonodular opacities visible on CXR. dvt/gi prophylaxis. ccm time 40 min Lake Loepz MD MTDNick
[2018-04-11 08:13] LABS: LYMPHOCYTE 4 % (22.0-35.0); MONOCYTE 2 % (1.0-6.0); NEUTROPHIL 94 % (50.0-70.0); PLATELET ESTIMATE NORMAL (NORMAL)
[2018-04-11 08:19] VITALS: RESP 18
[2018-04-11 08:20] VITALS: TEMP 98.2; O2SAT 99
[2018-04-11] MEDS ORDERED: Insulin Lispro 1 UNITS/0.01 ML SC STA (09:47)
[2018-04-11] MEDS ORDERED: Dextrose 50% SYRINGE Inj (50 ml) IVP ONE (09:47)
[2018-04-11] MEDS ORDERED: MethylPREDNISolone 40 mg Vial IVP SCH (10:00)
[2018-04-11] MEDS: cefTRIAXone 1 gm 1 GM/100 ML BAG IVPB SCH (10:18)
[2018-04-11] MEDS: Enoxaparin 40 mg Syringe SC SCH (10:18)
--- NOTE | 2018-04-11 10:21 | CP.PCM.DIS ---
<Fouzia Alexandra - Last Filed: 04/11/18 16:38> Provider - Provider Date of Admission: 04/10/18 09:32 Attending physician: Mekhi Guerra MD Consults: 04/10/18 11:13 Pulmonology Consult Routine Comment: Consulting Provider: Lake Lopez Consulting Physician: Lake Lopez Reason for Consult: CXR changes, asthma 04/10/18 13:21 Feed Management Advisor [Case Management Referral] Routine Comment: Physician Instructions: Reason For Exam: homeless Reason for Referral: Discharge Planning 04/10/18 14:22 Inpatient SUPERVISOR POWER REACTOR Core Measures Referral Routine Comment: Physician Instructions: Reason For Exam: EVALUATION Transition In Care/Readmission Reduction Routine Comment: Physician Instructions: Reason For Exam: EVALUATION Time Spent in preparation of Discharge (in minutes): 45 Diagnosis - Discharge Diagnosis (1) Pneumonitis Status: Acute (2) Community acquired pneumonia Status: Acute Hospital Course - Lab Results Lab Results: Most Recent Lab Values WBC 15.0 10^3/uL (4.5-11.0) H 04/11/18 06:20 RBC 3.60 10^6/uL (3.5-6.1) 04/11/18 06:20 Hgb 9.9 g/dL (12.0-16.0) L 04/11/18 06:20 Hct 32.2 % (36.0-48.0) L 04/11/18 06:20 MCV 89.4 fl (80.0-105.0) 04/11/18 06:20 MCH 27.5 pg (25.0-35.0) 04/11/18 06:20 MCHC 30.7 g/dl (31.0-37.0) L 04/11/18 06:20 RDW 15.3 % (11.5-14.5) H 04/11/18 06:20 Plt Count 388 10^3/uL (120.0-450.0) 04/11/18 06:20 MPV 9.3 fl (7.0-11.0) 04/11/18 06:20 Gran % 93.1 % (50.0-68.0) H 04/11/18 06:20 Lymph % (Auto) 3.6 % (22.0-35.0) L 04/11/18 06:20 Brantley % (Auto) 3.3 % (1.0-6.0) 04/11/18 06:20 Eos % (Auto) 0.0 % (1.5-5.0) L 04/11/18 06:20 Baso % (Auto) 0.0 % (0.0-3.0) 04/11/18 06:20 Gran # 13.97 (1.4-6.5) H 04/11/18 06:20 Lymph # (Auto) 0.5 (1.2-3.4) L 04/11/18 06:20 Brantley # (Auto) 0.5 (0.1-0.6) 04/11/18 06:20 Eos # (Auto) 0.0 (0.0-0.7) 04/11/18 06:20 Baso # (Auto) 0.00 K/mm3 (0.0-2.0) 04/11/18 06:20 Neutrophils % (Manual) 94 % (50.0-70.0) H 04/11/18 06:20 Lymphocytes % (Manual) 4 % (22.0-35.0) L 04/11/18 06:20 Monocytes % (Manual) 2 % (1.0-6.0) 04/11/18 06:20 Platelet Evaluation Normal (NORMAL) 04/11/18 06:20 pCO2 45 mm/Hg (35-45) 04/10/18 09:43 pO2 58.0 mm/Hg (80-100) L 04/10/18 09:43 HCO3 31.3 mmol/L (21-28) H 04/10/18 09:43 ABG pH 7.45 (7.35-7.45) 04/10/18 09:43 ABG Total CO2 32.7 mmol.L (22-28) H 04/10/18 09:43 ABG O2 Saturation 95.6 % (95-98) 04/10/18 09:43 ABG O2 Content 14.1 ML/dl (15-23) L 04/10/18 09:43 ABG Base Excess 6.5 mmol/L (-2.0-3.0) H 04/10/18 09:43 ABG Hemoglobin 11.0 g/dL (11.7-17.4) L 04/10/18 09:43 ABG Carboxyhemoglobin 4.2 % (0.5-1.5) H 04/10/18 09:43 POC ABG HHb (Measured) 4.2 % (0-5) 04/10/18 09:43 ABG Methemoglobin 0.8 % (0.0-3.0) 04/10/18 09:43 ABG O2 Capacity 14.7 mL/dl (16-24) L 04/10/18 09:43 Hgb O2 Saturation 90.8 % (95.0-98.0) L 04/10/18 09:43 FiO2 21.0 % 04/10/18 09:43 Sodium 129 mmol/L (132-148) L 04/11/18 06:20 Potassium 5.2 mmol/L (3.6-5.0) H 04/11/18 06:20 Chloride 95 mmol/L (98-107) L 04/11/18 06:20 Carbon Dioxide 31 mmol/L (21-33) 04/11/18 06:20 Anion Gap 8 (10-20) L 04/11/18 06:20 BUN 21 mg/dL (7-21) 04/11/18 06:20 Creatinine 0.5 mg/dl (0.7-1.2) L 04/11/18 06:20 Est GFR ( Amer) > 60 04/11/18 06:20 Est GFR (Non-Af Amer) > 60 04/11/18 06:20 Random Glucose 142 mg/dL (70-110) H 04/11/18 06:20 Calcium 8.9 mg/dL (8.4-10.5) 04/11/18 06:20 Phosphorus 3.6 mg/dL (2.5-4.5) 04/11/18 06:20 Magnesium 2.0 mg/dL (1.7-2.2) 04/11/18 06:20 Iron 64 ug/dL (45-180) 04/11/18 06:20 TIBC 284 ug/dL (265-497) 04/11/18 06:20 % Saturation 22 % (20-55) 04/11/18 06:20 Total Bilirubin 0.3 mg/dL (0.2-1.3) 04/11/18 06:20 AST 25 U/L (14-36) 04/11/18 06:20 ALT 34 U/L (7-56) 04/11/18 06:20 Alkaline Phosphatase 65 U/L (38-126) 04/11/18 06:20 Troponin I < 0.01 ng/mL 04/10/18 08:30 Total Protein 6.2 g/dL (5.8-8.3) 04/11/18 06:20 Albumin 3.6 g/dL (3.0-4.8) 04/11/18 06:20 Globulin 2.6 gm/dL 04/11/18 06:20 Albumin/Globulin Ratio 1.4 (1.1-1.8) 04/11/18 06:20 Urine Opiates Screen Positive (NEGATIVE) H 04/10/18 10:00 Urine Methadone Screen Negative (NEGATIVE) 04/10/18 10:00 Ur Barbiturates Screen Negative (NEGATIVE) 04/10/18 10:00 Ur Phencyclidine Scrn Negative (NEGATIVE) 04/10/18 10:00 Ur Amphetamines Screen Negative (NEGATIVE) 04/10/18 10:00 U Benzodiazepines Scrn Negative (NEGATIVE) 04/10/18 10:00 U Oth Cocaine Metabols Negative (NEGATIVE) 04/10/18 10:00 U Cannabinoids Screen Negative (NEGATIVE) 04/10/18 10:00 Alcohol, Quantitative < 10 mg/dL (0-10) 04/10/18 12:00 - Hospital Course Hospital Course: Upon Admission: 52 y/o F with PMHx of asthma w/ multiple hospital admissions, heroin abuse, anxiety presents to ED with complaints of shortness of breath and wheezing thats been ongoing for the past 2 days with associated dry cough, fevers, chills and chest tightness due to cough. SOB is alleviated with ventolin inhaler that she's been using three times/day, aggravated with smoking. Pt was recently discharged from [facility] for SOB and PNA, and also signed out AMA from [facility]. She reports smoking pack/day 6/yrs. She reports she is a heavy heroin use and snorted 10 bags today, and has been using 10-15 bags regularly. She reports she has been having night sweats and unintentionally lost 50-60 pounds over the past 3-4 months. She denies chest pain, palpitations, nausea, vomiting, constipation, diarrhea, dysuria. Hospital Course: Chest xray: "Possible low-density nodular opacities present right mid lung zone most conspicuous. Confluency its of right infrahilar bronchovascular markings with some vague nodular component questioned-slightly less conspicuous with the most recent study but not appreciated on the 2016 study. Indeterminate findings in the left mid lung zone possibly merely summation of soft tissues. Consider CT chest imaging for further evaluation. CT Chest/Abdomen/Pelvis: Pleural base opacity at the anterior aspect of the right lung upper lobe which adjacent hazy opacities and linear opacities. Findings may represent scar tissue and focal pleural thickening secondary to prior trauma. Three months follow-up reassessment is suggested to document stability. --Nonspecific patchy ground-glass opacities in the lungs noted more prominent in the upper lobe. --Mild cardiomegaly. --No evidence of acute pathology in the abdomen and pelvis. No evidence of mass lesion in the adrenal glands or in the liver. --Focal soft tissue density noted at the right mid abdomen adjacent and lateral to the ascending colon of uncertain etiology may represent focal thickening in the right lateral abdominal wall muscle. Pt was treated with duoneb treatments prn and aniket, IV solumedrol and empiric ceftriaxone covering for CAP. Pt was evaluated by pulmonology for suspicious CXR and CT findings, who attributed findings to CAP and pneumonitis. Pt was refusing ABG and refusing IV fluids and IV antibiotics. She received treatments with improvement in symptoms. Pt agreed to oral antibiotics. She was also refusing a full 6 minute walk test with resident. She was able to walk while saturating at 94% without any respiratory distress. Upon Discharge: Pt reports she is feeling much better after treatments. Her vital signs are stable. She will be discharged home on oral antibiotics with inhalers. She was counselled on cessation of smoking, illicit drug use. Family was present at bedside on day of discharge and will be staying with them upon discharge. She was instructed on follow up with PMD, medication compliance and to return to the nearest emergency room if symptoms return. Discharge Exam - Head Exam Head Exam: NORMAL INSPECTION, NORMOCEPHALIC - Eye Exam Eye Exam: EOMI, Normal appearance Pupil Exam: NORMAL ACCOMODATION - ENT Exam ENT Exam: Mucous Membranes Moist, Normal Exam - Neck Exam Neck exam: Normal Inspection - Respiratory Exam Respiratory Exam: NORMAL BREATHING PATTERN, UNREMARKABLE. absent: Respiratory Distress - Cardiovascular Exam Cardiovascular Exam: REGULAR RHYTHM, +S1, +S2 - GI/Abdominal Exam GI & Abdominal Exam: Normal Bowel Sounds, Unremarkable - Extremities Exam Extremities exam: normal inspection - Back Exam Back exam: NORMAL INSPECTION - Neurological Exam Neurological exam: Alert, Oriented x3 - Psychiatric Exam Psychiatric exam: Normal Affect, Normal Mood - Skin Skin Exam: Dry, Intact Discharge Plan - Discharge Medications Prescriptions: Fluticasone/Salmeterol 250/50 [Advair Diskus] 1 dsk IH Q4H #2 puff levoFLOXacin [Levaquin] 750 mg PO DAILY #5 tab Methylprednisolone [Medrol Dose Pack (21 tabs)] 4 mg PO DAILY #21 mg Albuterol HFA [Ventolin HFA 90 mcg/actuation (8 g)] 1 - 2 puff IH Q4H PRN #1 bottle PRN Reason: Wheezing - Follow Up Plan Condition: STABLE Disposition: HOME/ ROUTINE Instructions: Asthma, Adult (DC), Pneumonia, Adult (DC), Drug Abuse and Drug Addiction (DC), Quitting Smoking, Medicines for Asthma, Flu Vaccine Additional Instructions: Please follow up with your primary care doctor, Dr. Arita within 3-5 days of discharge from the hospital Please resume the medications that you were taking previously. Please discuss all your medications with your doctor. Please refrain from smoking and illicit drug use. Please return to the nearest emergency room if your symptoms return or you experience new symptoms. <Mekhi Guerra - Last Filed: 04/12/18 07:34> Provider - Provider Date of Admission: 04/10/18 09:32 Attending physician: Mekhi Guerra MD Consults: 04/10/18 11:13 Pulmonology Consult Routine Comment: Consulting Provider: Lake Lopez Consulting Physician: Lake Lopez Reason for Consult: CXR changes, asthma 04/10/18 13:21 Feed Management Advisor [Case Management Referral] Routine Comment: Physician Instructions: Reason For Exam: homeless Reason for Referral: Discharge Planning 04/10/18 14:22 Inpatient SUPERVISOR POWER REACTOR Core Measures Referral Routine Comment: Physician Instructions: Reason For Exam: EVALUATION Transition In Care/Readmission Reduction Routine Comment: Physician Instructions: Reason For Exam: EVALUATION Hospital Course - Lab Results Lab Results: Most Recent Lab Values WBC 15.0 10^3/uL (4.5-11.0) H 04/11/18 06:20 RBC 3.60 10^6/uL (3.5-6.1) 04/11/18 06:20 Hgb 9.9 g/dL (12.0-16.0) L 04/11/18 06:20 Hct 32.2 % (36.0-48.0) L 04/11/18 06:20 MCV 89.4 fl (80.0-105.0) 04/11/18 06:20 MCH 27.5 pg (25.0-35.0) 04/11/18 06:20 MCHC 30.7 g/dl (31.0-37.0) L 04/11/18 06:20 RDW 15.3 % (11.5-14.5) H 04/11/18 06:20 Plt Count 388 10^3/uL (120.0-450.0) 04/11/18 06:20 MPV 9.3 fl (7.0-11.0) 04/11/18 06:20 Gran % 93.1 % (50.0-68.0) H 04/11/18 06:20 Lymph % (Auto) 3.6 % (22.0-35.0) L 04/11/18 06:20 Brantley % (Auto) 3.3 % (1.0-6.0) 04/11/18 06:20 Eos % (Auto) 0.0 % (1.5-5.0) L 04/11/18 06:20 Baso % (Auto) 0.0 % (0.0-3.0) 04/11/18 06:20 Gran # 13.97 (1.4-6.5) H 04/11/18 06:20 Lymph # (Auto) 0.5 (1.2-3.4) L 04/11/18 06:20 Brantley # (Auto) 0.5 (0.1-0.6) 04/11/18 06:20 Eos # (Auto) 0.0 (0.0-0.7) 04/11/18 06:20 Baso # (Auto) 0.00 K/mm3 (0.0-2.0) 04/11/18 06:20 Neutrophils % (Manual) 94 % (50.0-70.0) H 04/11/18 06:20 Lymphocytes % (Manual) 4 % (22.0-35.0) L 04/11/18 06:20 Monocytes % (Manual) 2 % (1.0-6.0) 04/11/18 06:20 Platelet Evaluation Normal (NORMAL) 04/11/18 06:20 pCO2 45 mm/Hg (35-45) 04/10/18 09:43 pO2 58.0 mm/Hg (80-100) L 04/10/18 09:43 HCO3 31.3 mmol/L (21-28) H 04/10/18 09:43 ABG pH 7.45 (7.35-7.45) 04/10/18 09:43 ABG Total CO2 32.7 mmol.L (22-28) H 04/10/18 09:43 ABG O2 Saturation 95.6 % (95-98) 04/10/18 09:43 ABG O2 Content 14.1 ML/dl (15-23) L 04/10/18 09:43 ABG Base Excess 6.5 mmol/L (-2.0-3.0) H 04/10/18 09:43 ABG Hemoglobin 11.0 g/dL (11.7-17.4) L 04/10/18 09:43 ABG Carboxyhemoglobin 4.2 % (0.5-1.5) H 04/10/18 09:43 POC ABG HHb (Measured) 4.2 % (0-5) 04/10/18 09:43 ABG Methemoglobin 0.8 % (0.0-3.0) 04/10/18 09:43 ABG O2 Capacity 14.7 mL/dl (16-24) L 04/10/18 09:43 Hgb O2 Saturation 90.8 % (95.0-98.0) L 04/10/18 09:43 FiO2 21.0 % 04/10/18 09:43 Sodium 129 mmol/L (132-148) L 04/11/18 06:20 Potassium 5.2 mmol/L (3.6-5.0) H 04/11/18 06:20 Chloride 95 mmol/L (98-107) L 04/11/18 06:20 Carbon Dioxide 31 mmol/L (21-33) 04/11/18 06:20 Anion Gap 8 (10-20) L 04/11/18 06:20 BUN 21 mg/dL (7-21) 04/11/18 06:20 Creatinine 0.5 mg/dl (0.7-1.2) L 04/11/18 06:20 Est GFR ( Amer) > 60 04/11/18 06:20 Est GFR (Non-Af Amer) > 60 04/11/18 06:20 Random Glucose 142 mg/dL (70-110) H 04/11/18 06:20 Calcium 8.9 mg/dL (8.4-10.5) 04/11/18 06:20 Phosphorus 3.6 mg/dL (2.5-4.5) 04/11/18 06:20 Magnesium 2.0 mg/dL (1.7-2.2) 04/11/18 06:20 Iron 64 ug/dL (45-180) 04/11/18 06:20 TIBC 284 ug/dL (265-497) 04/11/18 06:20 % Saturation 22 % (20-55) 04/11/18 06:20 Ferritin 55.1 ng/mL 04/11/18 14:20 Total Bilirubin 0.3 mg/dL (0.2-1.3) 04/11/18 06:20 AST 25 U/L (14-36) 04/11/18 06:20 ALT 34 U/L (7-56) 04/11/18 06:20 Alkaline Phosphatase 65 U/L (38-126) 04/11/18 06:20 Troponin I < 0.01 ng/mL 04/10/18 08:30 Total Protein 6.2 g/dL (5.8-8.3) 04/11/18 06:20 Albumin 3.6 g/dL (3.0-4.8) 04/11/18 06:20 Globulin 2.6 gm/dL 04/11/18 06:20 Albumin/Globulin Ratio 1.4 (1.1-1.8) 04/11/18 06:20 Vitamin B12 468 pg/mL (239-931) 04/11/18 06:20 Folate 7.3 ng/mL 04/11/18 06:20 Urine Opiates Screen Positive (NEGATIVE) H 04/10/18 10:00 Urine Methadone Screen Negative (NEGATIVE) 04/10/18 10:00 Ur Barbiturates Screen Negative (NEGATIVE) 04/10/18 10:00 Ur Phencyclidine Scrn Negative (NEGATIVE) 04/10/18 10:00 Ur Amphetamines Screen Negative (NEGATIVE) 04/10/18 10:00 U Benzodiazepines Scrn Negative (NEGATIVE) 04/10/18 10:00 U Oth Cocaine Metabols Negative (NEGATIVE) 04/10/18 10:00 U Cannabinoids Screen Negative (NEGATIVE) 04/10/18 10:00 Alcohol, Quantitative < 10 mg/dL (0-10) 04/10/18 12:00 Attending/Attestation - Attestation I have personally seen and examined this patient.: Yes I have fully participated in the care of the patient.: Yes I have reviewed all pertinent clinical information, including history, physical exam and plan: Yes Notes (Text): 04/12/18 07:30 Attending note; Patient seen and examined with resident. Patient is alert and awake. Complaining of significant cough and shortness of breath. Denies any fevers, chills. Complaining of minimum sputum production. Patient is a 52-year-old female with PMHx of asthma/copd, active smoking , heroin abuse, anxiety and homelessness is admitted for acute COPD exacerbation. 1. Acute COPD exacerbation. Improved. Tachycardia is resolving. Patient refused repeat ABG. Patient's pulse oxygenation with ambulation is 94%. Treated with oxygen nasal cannula, Pulmicort, IV Solu-Medrol and DuoNeb thai atment. 2. Active smoking; smoking cessation is strongly advised. Started on NicoDerm patch. 3. Active heroin abuse; patient snorts heroin. Complete drug abuse cessation is strongly advised. 4. Chest x-ray showed multiple opacities. Pulmonary evaluation appreciated. CT Chest/Abdomen/Pelvis: Pleural base opacity at the anterior aspect of the right lung upper lobe which adjacent hazy opacities and linear opacities. Findings may represent scar tissue and focal pleural thickening secondary to prior trauma. Three months follow-up reassessment is suggested to document stability. Nonspecific patchy ground-glass opacities in the lungs noted more prominent in the upper lobe. 5. Anemia; needs follow-up as outpatient. 6. Anxiety depression; needs outpatient follow-up. Patient was discharged home with family. Patient will follow up with PMD Dr. Arita.
[2018-04-11] MEDS ORDERED: levoFLOXacin 500 mg in D5W 500 MG/100 ML BAG IVPB STA (10:42)
[2018-04-11 13:12] LABS: FOLATE 7.3 ng/mL
[2018-04-11] MEDS ORDERED: levoFLOXacin 750 MG TAB PO SCH (13:30)
[2018-04-11 14:00] VITALS: BP 143/94; PULSE 106
--- NOTE | 2018-04-12 15:22 | PQF ---
PROVIDER RESPONSE TEXT: acute asthma exacerbation. REVIEWER QUERY TEXT: Asthma Specificity and Type Asthma is documented in the Medical Record. Please specify the type and severity of asthma and indic ate if this is associated with exacerbation or status asthmaticus. Such as: -- Mild intermittent -- Mild persistent -- Moderate persistent -- Severe persistent -- Exercise induced bronchospasm -- Cough variant asthma -- Other, please specify The patient's Clinical Indicators include: Please see query. Thank you. Query created by: Deborah Padgett on 04/12/2018 2:18 PM Electronically signed by: Mekhi Guerra MD 04/12/2018 3:19 PM
== END 2018-04-11 16:19 | disposition home or self-care (01) ==
LOC: ED 07:17 → ERH 09:32 → 5RNO 10:57
PROVIDERS: ADMIT Internal Medicine; ATTEND Internal Medicine
DX: J44.1 Chronic obstructive pulmonary disease with (acute) exacerbation (principal); J45.901 Unspecified asthma with (acute) exacerbation; J44.0 Chronic obstructive pulmonary disease with (acute) lower respiratory infection; J18.9 Pneumonia, unspecified organism; Z80.0 Family history of malignant neoplasm of digestive organs; F11.10 Opioid abuse, uncomplicated; D64.9 Anemia, unspecified; F41.8 Other specified anxiety disorders; F32.89 Other specified depressive episodes; Z87.442 Personal history of urinary calculi; Z59.0 Homelessness; F17.210 Nicotine dependence, cigarettes, uncomplicated; Z87.01 Personal history of pneumonia (recurrent)
CPT/HCPCS: 36415; 36600; 71045; 71260; 74177; 80053; 80320; 80324; 80345; 80346; 80349; 80353; 80358; 80361; 82607; 82728; 82746; 82803; 83540; 83550; 83735; 83992; 84100; 84484; 85025; 93005; 94640; 96365; 96367; 96372; 96375; 96376; 99283; G0378; J0456; J0696; J1650; J1885; J2060; J2270; J2920; J2930; J7030; Q9967

== ENCOUNTER 2018-04-22 14:20 | Emergency (ER) | payer OTHER ==
[2018-04-22 14:39] VITALS: TEMP 98.1; O2SAT 97; BMI 20.1
[2018-04-22] MEDS: Albuterol-Ipratrop 3 mg / 0.5 (3 ml) UD IH SCH ×3 (15:10→15:38)
[2018-04-22 15:13] LABS: BASO # 0.02 K/mm3 (0.0-2.0); BASO % 0.1 % (0.0-3.0); EOS % 0.1 % (1.5-5.0); HEMOGLOBIN 11.7 g/dL (12.0-16.0); LYMPH # 1.5 (1.2-3.4); LYMPH % 9.2 % (22.0-35.0); MEAN CELL VOLUME 88.1 fl (80.0-105.0); MEAN CORPUSCULAR HEMOGLOBIN 27.9 pg (25.0-35.0); MEAN CORPUSCULAR HGB CONC 31.7 g/dl (31.0-37.0); MEAN PLATELET VOLUME 9.6 fl (7.0-11.0); MONO # 1.1 (0.1-0.6); MONO % 6.6 % (1.0-6.0); RBC 4.19 10^6/uL (3.5-6.1); RED CELL DISTRIBUTION WIDTH 15.4 % (11.5-14.5); WHITE BLOOD COUNT 16.7 10^3/uL (4.5-11.0)
--- NOTE | 2018-04-22 15:30 | ED PDOC ---
Arrival/HPI - General Chief Complaint: Shortness Of Breath Time Seen by Provider: 04/22/18 14:39 Historian: Patient - History of Present Illness Narrative History of Present Illness (Text): 04/22/18 14:39 Brandy Enciso is a 52 year old female who presents to the Emergency department with complaints of shortness of breath prior to arrival. Patient states that symptoms are consistent with previous exacerbations of COPD. Patient informs previous admissions but no intubations. Patient states she smoked a cigarette prior to arrival. Patient denies productive cough, fevers, chills, headache, dizziness, chest pain, dyspnea on exertion, cough, abdominal pain, nausea, vomiting, diarrhea, back pain, neck pain, or any other complaint. Past medical history: COPD, Asthma, heroin abuse Past surgical history: Kidney stone removal lithotripsy Time/Duration: Prior to Arrival Symptom Onset: Gradual Activities at Onset: Light Context: Home Past Medical History - Provider Review Nursing Documentation Reviewed: Yes - Infectious Disease Hx of Infectious Diseases: None - Reproductive Currently : No - Cardiac Hx Cardiac Disorders: No - Pulmonary Hx Respiratory Disorders: Yes Hx Asthma: Yes Hx Bronchitis: Yes Hx Chronic Obstructive Pulmonary Disease (COPD): Yes Hx Pneumonia: Yes - Neurological Hx Neurological Disorder: No Hx Seizures: No - HEENT Hx HEENT Disorder: No - Renal Hx Renal Disorder: Yes Hx Kidney Stones: Yes (RIGHT) - Endocrine/Metabolic Hx Endocrine Disorders: No - Hematological/Oncological Hx Blood Disorders: No - Integumentary Hx Dermatological Disorder: Yes (TATTOOS) - Musculoskeletal/Rheumatological Hx Musculoskeletal Disorders: Yes Hx Back Pain: Yes Hx Falls: Yes - Gastrointestinal Hx Gastrointestinal Disorders: Yes (CONSTIPATION) - Genitourinary/Gynecological Hx Genitourinary Disorders: No - Psychiatric Hx Psychophysiologic Disorder: (HEROIN/COCAINE USE-SNIFF/SNORT) Hx Anxiety: Yes Hx Depression: Yes Hx Substance Use: Yes (HEROIN AND COCAINE USED. LAST USED HEROIN TODAY,SNIFFED 10 BAGS THIS AM.) Other/Comment: INSOMNIA - Surgical History Other/Comment: Hx Kidney stone removal lithotripsy - Anesthesia Hx Anesthesia: Yes Hx Anesthesia Reactions: No Hx Malignant Hyperthermia: No - Suicidal Assessment Feels Threatened In Home Enviroment: No Family/Social History - Physician Review Nursing Documentation Reviewed: Yes Family/Social History: Neoplasm/Cancer (M: stomach ca. F: stomach ca. Brother: Colon ca. Sister: Colon ca) Smoking Status: Current Some Days Smoker Hx Alcohol Use: (DENIES) Hx Substance Use: Yes (HEROIN AND COCAINE USED. LAST USED HEROIN TODAY,SNIFFED 10 BAGS THIS AM.) Substance used: HEROIN Allergies/Home Meds Allergies/Adverse Reactions: Allergies No Known Allergies Allergy (Verified 04/10/18 13:52) Review of Systems - Physician Review All systems were reviewed & negative as marked: Yes - Review of Systems Constitutional: absent: Fevers, Night Sweats Respiratory: SOB. absent: Cough (denies productive cough) Cardiovascular: absent: Chest Pain Gastrointestinal: absent: Abdominal Pain, Diarrhea, Nausea, Vomiting Genitourinary Female: absent: Dysuria Musculoskeletal: absent: Back Pain, Neck Pain Neurological: absent: Headache, Dizziness Physical Exam Vital Signs Reviewed: Yes Vital Signs Temp Pulse Resp BP Pulse Ox 04/22/18 14:37 98.1 F 109 H 18 156/97 H 97 Temperature: Afebrile Blood Pressure: Hypertensive Pulse: Tachycardic Respiratory Rate: Normal Appearance: Positive for: Well-Appearing, Non-Toxic, Comfortable Pain Distress: None Mental Status: Positive for: Alert and Oriented X 3 - Systems Exam Head: Present: Atraumatic, Normocephalic Pupils: Present: PERRL Extroacular Muscles: Present: EOMI Conjunctiva: Present: Normal Mouth: Present: Moist Mucous Membranes Neck: Present: Normal Range of Motion Respiratory/Chest: Present: Wheezes. No: Respiratory Distress, Accessory Muscle Use Cardiovascular: Present: Regular Rate and Rhythm, Normal S1, S2. No: Murmurs Abdomen: No: Tenderness, Distention, Peritoneal Signs Back: Present: Normal Inspection Upper Extremity: Present: Normal Inspection. No: Cyanosis, Edema Lower Extremity: Present: Normal Inspection. No: Edema Neurological: Present: GCS=15, CN II-XII Intact, Speech Normal Skin: Present: Warm, Dry, Normal Color. No: Rashes Psychiatric: Present: Alert, Oriented x 3, Normal Insight, Normal Concentration Medical Decision Making ED Course and Treatment: 04/22/18 14:39 Impression: Patient is a 52 year old female who presents to the emergency department with shortness of breath consistent with previous exacerbations of COPD. No chest pain or trauma. Speaking in full sentences in NAD. Differential Diagnosis included but are not limited to: COPD Exacerbation Plan: -- EKG -- Labs -- Chest X-Ray -- Duoneb -- SOLU-Medrol -- Reassess and disposition Prior Visits: Notes and results from previous visits were reviewed. Progress Notes: 04/22/18 15:44 Reviewed EKG: NSR at 100 BPM Tachycardic, no STEMI 04/22/18 16:16 pt in NAD, notes full resolution of shortness of breath. Wheezing fully resolved per pt. I reccomended further evaluation. Patient denied continued observation and wants to sign out against medical advice. However, patient eloped ED before signing AMA paperwork. - RAD Interpretation Radiology Orders: 04/22/18 14:49 CHEST TWO VIEWS (PA/LAT) [RAD] Stat - EKG Interpretation Interpreted by ED Physician: Yes Type: 12 lead EKG - Medication Orders Current Medication Orders: Albuterol/Ipratropium (Duoneb 3 Mg/0.5 Mg (3 Ml) Ud) 3 ml IH Q15M PAT Stop: 04/22/18 15:31 Last Admin: 04/22/18 15:10 Dose: 3 ml Discontinued Medications Methylprednisolone (Solu-Medrol) 125 mg IVP STAT STA Stop: 04/22/18 14:58 Last Admin: 04/22/18 15:10 Dose: 125 mg IVP Administration Document 04/22/18 15:10 OCS (Rec: 04/22/18 15:10 OCS [id number]) Charges for Administration # of IVP Administrations 1 - Scribe Statement The provider has reviewed the documentation as recorded by the Armando Trejo training with Osmar Santiago All medical record entries made by the Scribe were at my direction and personally dictated by me. I have reviewed the chart and agree that the record accurately reflects my personal performance of the history, physical exam, medical decision making, and the department course for this patient. I have also personally directed, reviewed, and agree with the discharge instructions and disposition. Disposition/Present on Arrival - Present on Arrival Any Indicators Present on Arrival: No History of DVT/PE: No History of Uncontrolled Diabetes: No Urinary Catheter: No History of Decub. Ulcer: No History Surgical Site Infection Following: None - Disposition Have Diagnosis and Disposition been Completed?: Yes Diagnosis: COPD exacerbation Disposition: ELOPEMENT - ER ONLY Disposition Time: 16:19 Condition: STABLE Additional Instructions: BRANDY ENCISO, thank you for letting us take care of you today. Your provider was Bernardino Hinojosa and you were treated for SOB. The emergency medical care you received today was directed at your acute symptoms. If you were prescribed any medication, please fill it and take as directed. It may take several days for your symptoms to resolve. Return to the Emergency Department if your symptoms worsen, do not improve, or if you have any other problems. Please contact your doctor or call one of the physicians/clinics you have been referred to that are listed on the Patient Visit Information form that is included in your discharge packet. Bring any paperwork you were given at discharge with you along with any medications you are taking to your follow up visit. Our treatment cannot replace ongoing medical care by a primary care provider outside of the emergency department. Thank you for allowing the [facility] team to be part of your care today. If you had an X-Ray or CT scan: A Radiologist will review the ED reading if any change in treatment is needed we will contact you. If you had a blood, urine, or wound culture: It will take several days for the results, if any change in treatment is needed we will contact you. If you had an STI test: It will take 48 hours for the results. Please call after 1 week if you have not heard back. Referrals: Priyank Arita MD [Primary Care Provider] - Follow up with primary Forms: [employer] (Lao)
[2018-04-22 15:31] LABS: ALB/GLOB RATIO 1.3 (1.1-1.8); ALBUMIN 3.9 g/dL (3.0-4.8); ALT/SGPT 22 U/L (7-56); AST/SGOT 32 U/L (14-36); BLOOD UREA NITROGEN 25 mg/dL (7-21); CALCIUM 9.1 mg/dL (8.4-10.5); GFR NON-AFRICAN AMERICAN > 60
[2018-04-22 15:32] LABS: TROPONIN I < 0.01 ng/mL
[2018-04-22 16:18] VITALS: BP 137/94; PULSE 94; RESP 19
--- NOTE | 2018-04-22 23:53 | CARD ---
APPROVED REPORT Date of service: 04/22/2018 EKG Measurement Heart [id number] <Conclusion> Poor data quality, interpretation may be adversely affected Normal sinus rhythm Minimal voltage criteria for LVH, may be normal variant Borderline ECG
== END 2018-04-22 16:15 | disposition left against medical advice (07) ==
LOC: ED 14:20
DX: J44.1 Chronic obstructive pulmonary disease with (acute) exacerbation (principal); F17.210 Nicotine dependence, cigarettes, uncomplicated
CPT/HCPCS: 80053; 81025; 84484; 85025; 93005; 96374; 99284; J2930

== ENCOUNTER 2018-04-24 21:21 | Emergency (ER) | payer OTHER ==
[2018-04-24 21:21] VITALS: BMI 20.1
[2018-04-24] MEDS ORDERED: Albuterol-Ipratrop 3 mg / 0.5 (3 ml) UD IH STA ×2 (21:30→21:41)
--- NOTE | 2018-04-24 21:33 | ED PDOC ---
Arrival/HPI - General Chief Complaint: Respiratory Distress Time Seen by Provider: 04/24/18 21:27 Historian: Patient - History of Present Illness Narrative History of Present Illness (Text): 04/24/18 21:27 Brandy Enciso is a 52 year old female smoker with a past medical history of asthma and COPD who presents to the Emergency department with complaints of shortness of breath. Patient states that current symptoms are similar to previous episodes of asthma and COPD. Patient informs nebulizer treatment, prednisone, and albuterol do not provide significant relief. Patient denies fevers, chills, headache, dizziness, chest pain, dyspnea on exertion, cough, abdominal pain, nausea, vomiting, diarrhea, back pain, neck pain, or any other complaint. Time/Duration: Prior to Arrival Symptom Course: Unchanged Activities at Onset: Light Context: Home Past Medical History - Provider Review Nursing Documentation Reviewed: Yes - Infectious Disease Hx of Infectious Diseases: None - Reproductive Currently : No - Cardiac Hx Cardiac Disorders: No - Pulmonary Hx Respiratory Disorders: Yes Hx Asthma: Yes Hx Bronchitis: Yes Hx Chronic Obstructive Pulmonary Disease (COPD): Yes Hx Pneumonia: Yes - Neurological Hx Neurological Disorder: No Hx Seizures: No - HEENT Hx HEENT Disorder: No - Renal Hx Renal Disorder: Yes Hx Kidney Stones: Yes (RIGHT) - Endocrine/Metabolic Hx Endocrine Disorders: No - Hematological/Oncological Hx Blood Disorders: No - Integumentary Hx Dermatological Disorder: Yes (TATTOOS) - Musculoskeletal/Rheumatological Hx Musculoskeletal Disorders: Yes Hx Back Pain: Yes Hx Falls: Yes - Gastrointestinal Hx Gastrointestinal Disorders: Yes (CONSTIPATION) - Genitourinary/Gynecological Hx Genitourinary Disorders: No - Psychiatric Hx Psychophysiologic Disorder: (HEROIN/COCAINE USE-SNIFF/SNORT) Hx Anxiety: Yes Hx Depression: Yes Hx Substance Use: Yes (HEROIN AND COCAINE USED. LAST USED HEROIN TODAY,SNIFFED 10 BAGS THIS AM.) Other/Comment: INSOMNIA - Surgical History Other/Comment: Hx Kidney stone removal lithotripsy - Anesthesia Hx Anesthesia: Yes Hx Anesthesia Reactions: No Hx Malignant Hyperthermia: No - Suicidal Assessment Feels Threatened In Home Enviroment: No Family/Social History - Physician Review Nursing Documentation Reviewed: Yes Family/Social History: Neoplasm/Cancer (M: stomach ca. F: stomach ca. Brother: Colon ca. Sister: Colon ca) Smoking Status: Current Some Days Smoker Hx Alcohol Use: (DENIES) Hx Substance Use: Yes (HEROIN AND COCAINE USED. LAST USED HEROIN TODAY,SNIFFED 10 BAGS THIS AM.) Substance used: HEROIN Allergies/Home Meds Allergies/Adverse Reactions: Allergies No Known Allergies Allergy (Verified 04/10/18 13:52) Review of Systems - Physician Review All systems were reviewed & negative as marked: Yes - Review of Systems Constitutional: absent: Fevers, Night Sweats Respiratory: SOB Cardiovascular: absent: Chest Pain Gastrointestinal: absent: Abdominal Pain, Diarrhea, Nausea, Vomiting Genitourinary Female: absent: Dysuria Musculoskeletal: absent: Neck Pain Neurological: absent: Headache, Dizziness Physical Exam Vital Signs Reviewed: Yes Temperature: Afebrile Blood Pressure: Normal Pulse: Regular Respiratory Rate: Normal Appearance: Positive for: Well-Appearing, Non-Toxic, Comfortable Pain Distress: None Mental Status: Positive for: Alert and Oriented X 3 - Systems Exam Head: Present: Atraumatic, Normocephalic Pupils: Present: PERRL Extroacular Muscles: Present: EOMI Conjunctiva: Present: Normal Mouth: Present: Moist Mucous Membranes Neck: Present: Normal Range of Motion Respiratory/Chest: Present: Wheezes (bilateral), Decreased Breath Sounds. No: Clear to Auscultation, Good Air Exchange, Respiratory Distress, Accessory Muscle Use Cardiovascular: Present: Regular Rate and Rhythm, Normal S1, S2. No: Murmurs Abdomen: No: Tenderness, Distention, Peritoneal Signs Back: Present: Normal Inspection Upper Extremity: Present: Normal Inspection. No: Cyanosis, Edema Lower Extremity: Present: Normal Inspection. No: Edema Neurological: Present: GCS=15, CN II-XII Intact, Speech Normal Skin: Present: Warm, Dry, Normal Color. No: Rashes Psychiatric: Present: Alert, Oriented x 3, Normal Insight, Normal Concentration Medical Decision Making ED Course and Treatment: 04/24/18 21:27 Impression: Patient is a 52 year old female with a past medical history of COPD and asthma who presents to the Emergency department with shortness of breath Plan: -- EKG -- Chest X-Ray -- Labs -- Duoneb -- SOLU-medrol -- Reassess and disposition Prior Visits: Notes and results from previous visits were reviewed. Patient was last seen in the emergency department on Progress Notes: 04/24/18 22:40 The patient declines admission, and wishes to leave the Emergency Department. This action is against my medical advice to the patient and the decision was made with informed refusal. The patient was told that admission is necessary and a full explanation of the rationale was given. The risks of leaving were explained to the patient and include, but are not limited to, worsening of known or currently unknown conditions, permanent disability and from undiagnosed or untreated conditions The patient has the capacity to make this informed decision and understands the clinical situation and my explanation of the risks of leaving. The patient voluntarily accepts these risks, and a signed AMA form documenting our conversation was obtained. The patient was given the opportunity to ask questions and reconsider. The patient was encouraged to return to the Emergency Department at any time for further care. - Scribe Statement The provider has reviewed the documentation as recorded by the SavannahibMarli matthews with Ernestine All medical record entries made by the Scribe were at my direction and personally dictated by me. I have reviewed the chart and agree that the record accurately reflects my personal performance of the history, physical exam, medical decision making, and the department course for this patient. I have also personally directed, reviewed, and agree with the discharge instructions and disposition. Disposition/Present on Arrival - Present on Arrival Any Indicators Present on Arrival: No History of DVT/PE: No History of Uncontrolled Diabetes: No Urinary Catheter: No History of Decub. Ulcer: No History Surgical Site Infection Following: None - Disposition Have Diagnosis and Disposition been Completed?: Yes Diagnosis: COPD exacerbation Disposition: AGAINST MEDICAL ADVICE Disposition Time: 22:50 Condition: STABLE Forms: [employer] (Monegasque)
[2018-04-24 22:25] VITALS: BP 153/92; PULSE 110; RESP 18; TEMP 98.2
[2018-04-24 22:30] LABS: HEMOGLOBIN 11.4 g/dL (12.0-16.0); MEAN CELL VOLUME 88.6 fl (80.0-105.0); MEAN CORPUSCULAR HEMOGLOBIN 27.7 pg (25.0-35.0); MEAN CORPUSCULAR HGB CONC 31.3 g/dl (31.0-37.0); MEAN PLATELET VOLUME 9.2 fl (7.0-11.0); RBC 4.11 10^6/uL (3.5-6.1); RED CELL DISTRIBUTION WIDTH 14.9 % (11.5-14.5); WHITE BLOOD COUNT 15.6 10^3/uL (4.5-11.0)
[2018-04-24 22:34] LABS: INR 0.99; PARTIAL THROMBOPLASTIN TIME 25.9 Seconds (26.9-38.3)
[2018-04-24 22:39] LABS: ALB/GLOB RATIO 1.4 (1.1-1.8); ALT/SGPT 27 U/L (7-56); AST/SGOT 39 U/L (14-36); BLOOD UREA NITROGEN 15 mg/dL (7-21); CALCIUM 8.7 mg/dL (8.4-10.5); GFR NON-AFRICAN AMERICAN > 60
[2018-04-24 22:46] LABS: B-TYPE NATRIURETIC PEPTIDE 330 pg/mL (0-450); TROPONIN I < 0.01 ng/mL
[2018-04-24 23:03] VITALS: O2SAT 96
--- NOTE | 2018-04-25 09:01 | RAD ---
Date of service: 04/24/2018 HISTORY: sob COMPARISON: 04/10/2018. FINDINGS: LUNGS: There is subsegmental atelectasis in the lower lobes. No focal consolidation. PLEURA: No pleural effusions or pneumothorax. CARDIOVASCULAR: The heart is normal in size. No aortic atherosclerotic calcifications present. OSSEOUS STRUCTURES: Within normal limits for the patient's age. VISUALIZED UPPER ABDOMEN: Normal. OTHER FINDINGS: None. IMPRESSION: No active pulmonary disease.
== END 2018-04-24 22:50 | disposition left against medical advice (07) ==
LOC: ED 21:21
DX: J44.1 Chronic obstructive pulmonary disease with (acute) exacerbation (principal)